=== PATIENT | female | born 1945 | race Caucasian/White ===

== ENCOUNTER → 2017-11-11 | Outpatient (CLI) | payer MEDICARE, OTHER ==
[~2017-11-11] MED LIST: CIPRO500 MG; CYCLOBENZAPRINE10 MG; TYLENOL # 31 EA; Z.0.CRESTOR10 MG PO; Z.0.PREMARIN0.625 MG PO; Z.0.SERTRALINE HCL50; Z.0.VERAPAMIL HCL40 PO; ZOLOFT50 MG PO
--- NOTE | 2017-11-11 15:05 | Diagnostic Imaging Report ---
PROCEDURE: Frontal and lateral views of the chest. COMPARISON: None. INDICATIONS: BRONCHIECTASIS, SOB 2 WEEKS FINDINGS: Lines/tubes: None. Lungs: Prominence of the pulmonary interstitium particularly in the lower lobes with Erlinda B-lines. Mild bilateral perihilar peribronchial thickening. There is no evidence of pneumonia or pulmonary edema. Subtle, 8 mm nodular density projected on the right lung base on the PA view without corresponding abnormality on the lateral view. Pleura: There is no pleural effusion or pneumothorax. Heart and mediastinum: The heart and the mediastinum are normal. Mild calcification of the aortic arch. Bones: No acute bony abnormality. IMPRESSION: 1. Prominence of the interstitium in the lower lobes may represent senescent fibrosis. No acute thoracic abnormality. Daniel Brush M.D. Dictated by: Daniel Brush M.D. on 11/11/2017 at 15:07 Electronically approved by: Daniel Brush M.D. on 11/11/2017 at 15:07
== END ==
LOC: RAD 14:30
PROVIDERS: ATTEND Internal Medicine Pulmonary Disease
DX: J47.9 Bronchiectasis, uncomplicated (principal)
CPT/HCPCS: 71046

== ENCOUNTER → 2018-01-01 | Outpatient (CLI) | payer MEDICARE, OTHER ==
--- NOTE | 2018-01-01 17:32 | Diagnostic Imaging Report ---
TECHNIQUE: Magnetic resonance imaging of the RIGHT KNEE was performed WITHOUT injected contrast. HISTORY: Swelling, fall, anterior posterior and lateral side COMPARISON: None available. FINDINGS: LIGAMENTS AND TENDONS: ACL: Intact with intrasubstance degeneration. PCL: Intact Collateral ligaments: Intact. Interval increased soft tissue edema adjacent to the medial collateral ligament. Iliotibial band: Unremarkable Popliteal tendon: Intact Extensor mechanism: Intact JOINT: Menisci: Medial: Complex tearing and attenuation, results in peripheral extrusion. Lateral: Complex tearing and attenuation, results in peripheral extrusion. Articular Cartilage: Medial Compartment: High-grade to full-thickness erosions of the weightbearing cartilage. Lateral Compartment: High-grade to full-thickness erosions of the weightbearing cartilage. Patellofemoral Compartment: High-grade erosions. Joint Fluid: Trace nonspecific effusion and a mildly distended multilobulated Chavira's cyst. BONES: No focal or infiltrative bone marrow replacing abnormality. No acute fracture. Tricompartmental marginal osteophytosis. SOFT TISSUES: Otherwise, unremarkable. IMPRESSION: 1. Findings which could be seen in the setting of a mild medial collateral ligament sprain. 2. Tricompartmental degenerative changes, including degenerative tearing of the menisci. Signed by: Dr. Waylon Youssef D.O., M.M.M. on 01/01/2018 5:29 PM
== END ==
LOC: MRI 12:41
PROVIDERS: ATTEND Specialist
DX: S83.281A Other tear of lateral meniscus, current injury, right knee, initial encounter (principal)

== ENCOUNTER 2018-01-09 09:59 | Outpatient (RCR) | payer MEDICARE, OTHER | END 2018-01-11 | LOC: OT 09:59 | PROVIDERS: ATTEND Specialist | DX: S46.091D Other injury of muscle(s) and tendon(s) of the rotator cuff of right shoulder, subsequent encounter (principal); M25.511 Pain in right shoulder; M25.611 Stiffness of right shoulder, not elsewhere classified; M77.11 Lateral epicondylitis, right elbow; M25.521 Pain in right elbow; M25.621 Stiffness of right elbow, not elsewhere classified; R53.1 Weakness | CPT/HCPCS: 97010 ×5; 97110 ×6; 97140 ×3; 97165; G8987; G8988 ==

== ENCOUNTER → 2018-01-28 | Day surgery (SDC) | payer MEDICARE, OTHER ==
[2018-01-24 14:31] LABS: BASOPHILS % 0.5 % (0.0-1.0); EOSINOPHILS # (AUTO) 0.3 (0.0-0.4); EOSINOPHILS % 3.9 % (0.0-6.0); HEMATOCRIT 42.5 % (34.2-44.1); HEMOGLOBIN 14.2 g/dL (12.0-16.0); LYMPHOCYTES % 30.7 % (18.0-39.1); MEAN CORPUSCULAR HEMOGLOBIN 29.3 pg (28-32); MEAN CORPUSCULAR HGB CONC 33.4 g/dL (31-35); MEAN CORPUSCULAR VOLUME 87.6 fL (81-99); MONOCYTES # (AUTO) 0.6 (0.2-0.8); MONOCYTES % 8.5 % (4.4-11.3); NEUTROPHILS # (AUTO) 3.6 (2.1-6.9); NEUTROPHILS % 56.1 % (38.7-80.0); PLATELET COUNT 149 x10e3/uL (140-360); RED BLOOD COUNT 4.85 x10e6/uL (3.6-5.1); RED CELL DISTRIBUTION WIDTH 14.2 % (11.7-14.4)
[~2018-01-28] MED LIST changes: +ALEVE220 M1; +BUPIVACAINE 0.5%/EPI 30 ML SDV INJ ONE; +CEFAZOLIN SOD 2 GM/D5W 50ML 50 ML IV ONE; +COLESTIPOL HCL1 GM PO; +COQ-10100 MG; +DEXAMETHASONE SOD PHOS INJ 4 MG/ML VIAL ONE; +GLUCOSAMINE1000 MG; +KETOROLAC TROMETHAMINE 30 MG/ML VIAL ONE; +LIDOCAINE HCL 2% LOCAL INJ 5 ML SDV VIAL INJ ONE; +ONDANSETRON HCL INJ 2 MG/ML VIAL ONE; +PROPOFOL IV EMULSION 10 MG/ML 20 ML VIAL ONE; +RED YEAST; +SEVOFLURANE INHAL SOLN 250 ML PEN BTL ONE; +TYLENOL EXTRA500 MG; +[UNRECOGNIZED DRUG - OTHER]
--- NOTE | 2018-01-28 10:11 | Operative Report ---
DATE OF PROCEDURE: January 28, 2018 PREOPERATIVE DIAGNOSES 1. Right knee lateral meniscus tear. 2. Right knee degenerative joint disease of the knee. POSTOPERATIVE DIAGNOSES 1. Right knee medial meniscus tear. 2. Right knee lateral meniscus tear. 3. Right knee degenerative joint disease of the knee. PROCEDURES PERFORMED 1. Right knee examination under anesthesia. 2. Right knee arthroscopy. 3. Right knee partial medial meniscectomy. 4. Right knee partial lateral meniscectomy. 5. Right knee chondroplasties of the patella, trochlea, medial femoral condyle, medial tibial plateau, lateral femoral condyle, lateral tibial plateau. FILTER WASHER: None. ANESTHESIA: General endotracheal intubation anesthesia. IV FLUIDS: Per the anesthesia record. DESCRIPTION OF PROCEDURE: Ms. Lewis was taken to the operating room and placed in the supine position on the operating table. Following induction of general anesthesia as well as endotracheal intubation, the patient's right knee was examined under anesthesia. There was no evidence of ligamentous laxity. There was a mild effusion within the knee joint. The patient's lower extremity was prepped and draped in the standard surgical fashion. A 2-portal technique was used to provide this patient arthroscopic evaluation of the knee joint. Examination of the suprapatellar pouch, medial and lateral gutters found no evidence of loose bodies. There was, however, evidence of chondromalacia of the patellar and trochlear surfaces. The scope was then advanced into the medial compartment. Examination of the medial compartment demonstrated a tear of the posterior horn of the medial meniscus extending to the mid portion of the meniscus body. There was moderate chondromalacia of the articulating surfaces. A combination of biting forceps and motorized shaver was used to resect the torn portion of the meniscus. Chondroplasties of the medial femoral condyle and medial tibial plateau were performed at this time. The scope was advanced into the intercondylar notch, and the anterior cruciate ligament was identified and found to be intact. The scope was advanced into the lateral compartment. There was advanced arthrosis of the lateral compartment. There was also a tear in the posterior horn of the lateral meniscus as well as the anterior horn of the lateral meniscus. A combination of biting forceps and motorized shaver was used to resect the torn portion of the meniscus. Chondroplasties of the lateral femoral condyle and lateral tibial plateau were performed at this time. The scope was then placed in the suprapatellar pouch, and chondroplasties of the patella and trochlea were performed. The knee was deflated of its sterile normal saline. Each of the portal sites were closed using 4-0 nylon suture. The portal sites as well as the knee itself were injected with 0.5% Marcaine with epinephrine. Sterile dressings were applied. The patient was awakened and taken to the postanesthesia care unit in stable condition. Job#: [id number]
== END | disposition home or self-care (01) ==
LOC: OR 05:05
PROVIDERS: ATTEND Specialist
DX: S83.261A Peripheral tear of lateral meniscus, current injury, right knee, initial encounter (principal); S83.221A Peripheral tear of medial meniscus, current injury, right knee, initial encounter; M17.11 Unilateral primary osteoarthritis, right knee; M22.41 Chondromalacia patellae, right knee; M19.011 Primary osteoarthritis, right shoulder; M77.11 Lateral epicondylitis, right elbow; I10 Essential (primary) hypertension; E88.09 Other disorders of plasma-protein metabolism, not elsewhere classified; J44.9 Chronic obstructive pulmonary disease, unspecified; E66.01 Morbid (severe) obesity due to excess calories; F32.9 Major depressive disorder, single episode, unspecified; Z88.6 Allergy status to analgesic agent; Z88.8 Allergy status to other drugs, medicaments and biological substances; Z88.3 Allergy status to other anti-infective agents; X58.XXXA Exposure to other specified factors, initial encounter; Z01.810 Encounter for preprocedural cardiovascular examination; Z01.812 Encounter for preprocedural laboratory examination; Z68.38 Body mass index [BMI] 38.0-38.9, adult; Z87.891 Personal history of nicotine dependence
CPT/HCPCS: 29880; 36415; 85025; 93005; J1100; J1885; J2001; J2405

== ENCOUNTER → 2018-02-04 | Outpatient (CLI) | payer MEDICARE, OTHER ==
[~2018-02-04] MED LIST changes: -BUPIVACAINE 0.5%/EPI 30 ML SDV INJ ONE; -CEFAZOLIN SOD 2 GM/D5W 50ML 50 ML IV ONE; -DEXAMETHASONE SOD PHOS INJ 4 MG/ML VIAL ONE; -KETOROLAC TROMETHAMINE 30 MG/ML VIAL ONE; -LIDOCAINE HCL 2% LOCAL INJ 5 ML SDV VIAL INJ ONE; -ONDANSETRON HCL INJ 2 MG/ML VIAL ONE; -PROPOFOL IV EMULSION 10 MG/ML 20 ML VIAL ONE; -SEVOFLURANE INHAL SOLN 250 ML PEN BTL ONE
== END ==
LOC: RAD 16:51
PROVIDERS: ATTEND Specialist
DX: R22.41 Localized swelling, mass and lump, right lower limb (principal)
CPT/HCPCS: 93971

== ENCOUNTER 2018-02-06 11:00 | Outpatient (RCR) | payer MEDICARE, OTHER | END 2018-02-11 | LOC: OT 11:00 | PROVIDERS: ATTEND Specialist | DX: S46.091D Other injury of muscle(s) and tendon(s) of the rotator cuff of right shoulder, subsequent encounter (principal); M77.11 Lateral epicondylitis, right elbow; M25.511 Pain in right shoulder; M25.611 Stiffness of right shoulder, not elsewhere classified; M25.521 Pain in right elbow; M25.621 Stiffness of right elbow, not elsewhere classified; R53.1 Weakness | CPT/HCPCS: 97010 ×3; 97110 ×4; 97139; G8987; G8988 ==

== ENCOUNTER 2018-03-06 12:31 | Outpatient (RCR) | payer MEDICARE, OTHER ==
[~2018-03-06 12:31] MED LIST changes: -ALEVE220 M1; +ALEVE220 M1 PO; -COQ-10100 MG; +COQ-10100 MG PO; -GLUCOSAMINE1000 MG; +GLUCOSAMINE1000 MG PO; -RED YEAST; +RED YEAST PO; -TYLENOL EXTRA500 MG; +TYLENOL EXTRA500 MG PO
[2018-03-10] MEDS ORDERED: MONTELUKAST SOD10 MG PO (23:15)
[2018-03-10] MEDS ORDERED: TRIAMCINOLONE A15 G1 TOP (23:21)
== END 2018-03-14 ==
LOC: PT 12:31
PROVIDERS: ATTEND Specialist
DX: M75.81 Other shoulder lesions, right shoulder (principal); M77.11 Lateral epicondylitis, right elbow
CPT/HCPCS: 97010 ×2; 97110 ×8; 97162; G8978; G8979

== ENCOUNTER 2018-03-10 14:41 | Inpatient (IN) | payer MEDICARE, OTHER ==
[~2018-03-10] VITALS: Ht 167.6 cm; Wt 118.6 kg
[2018-03-10] MEDS ORDERED: ASPIRIN 81 MG CHEW TAB PO ONE (15:15)
[2018-03-10 15:20] LABS: BASOPHILS % 0.5 % (0.0-1.0); EOSINOPHILS # (AUTO) 0.3 (0.0-0.4); HEMATOCRIT 44.8 % (34.2-44.1); HEMOGLOBIN 14.6 g/dL (12.0-16.0); LYMPHOCYTES # (AUTO) 2.1 (1.0-3.2); LYMPHOCYTES % 24.3 % (18.0-39.1); MEAN CORPUSCULAR HEMOGLOBIN 29.3 pg (28-32); MEAN CORPUSCULAR HGB CONC 32.6 g/dL (31-35); MEAN CORPUSCULAR VOLUME 89.8 fL (81-99); MONOCYTES # (AUTO) 0.6 (0.2-0.8); MONOCYTES % 6.3 % (4.4-11.3); NEUTROPHILS # (AUTO) 5.7 (2.1-6.9); NEUTROPHILS % 65.4 % (38.7-80.0); PLATELET COUNT 178 x10e3/uL (140-360); RED BLOOD COUNT 4.99 x10e6/uL (3.6-5.1); RED CELL DISTRIBUTION WIDTH 14.3 % (11.7-14.4)
[2018-03-10 15:33] LABS: PROTHROMBIN TIME 12.4 seconds (11.9-14.5)
[2018-03-10 15:34] LABS: PARTIAL THROMBOPLASTIN TIME 32.7 seconds (23.8-35.5)
[2018-03-10 15:43] LABS: ALANINE AMINOTRANSFERASE 25 IU/L (0-55); ALBUMIN 4.1 g/dL (3.5-5.0); ALBUMIN/GLOBULIN RATIO 1.2 (0.8-2.0); ALKALINE PHOSPHATASE 103 IU/L (40-150); ANION GAP 16.4 mmol/L (8-16); BLOOD UREA NITROGEN 12 mg/dL (7-26); BUN/CREATININE RATIO 15 (6-25); CALCIUM 10.3 mg/dL (8.4-10.2); CARBON DIOXIDE 27 mmol/L (22-29); CHLORIDE 102 mmol/L (98-107); CREATINE KINASE 46 IU/L (29-168); CREATININE, SERUM 0.79 mg/dL (0.57-1.11); EST GLOMERULAR FILTRATION RATE > 60 ML/MIN (60-); GLUCOSE 91 mg/dL (74-118); POTASSIUM 4.4 mmol/L (3.5-5.1); SODIUM 141 mmol/L (136-145)
[2018-03-10 16:30] LABS: BILIRUBIN,URINE NEGATIVE (NEGATIVE); CLARITY,URINE CLEAR (CLEAR); COLOR,URINE YELLOW (YELLOW); KETONES,URINE NEGATIVE (NEGATIVE); LEUKOCYTE ESTERASE ,URINE TRACE (NEGATIVE); NITRITE,URINE NEGATIVE (NEGATIVE); PROTEIN,URINE DIPSTICK NEGATIVE (NEGATIVE); URINE UROBILINOGEN 0.2 mg/dL (0.2 - 1)
[2018-03-10 16:31] LABS: AMPHETAMINES SCREEN,URINE NEGATIVE (NEGATIVE); BENZODIAZEPINES SCREEN,URINE NEGATIVE (NEGATIVE); PHENCYCLIDINE SCREEN,URINE NEGATIVE (NEGATIVE)
[2018-03-10 16:39] LABS: EPITHELIAL CELLS,URINE MANY /LPF
[2018-03-10 16:40] LABS: TRANSITIONAL EPI CELLS,URINE MANY
[2018-03-10 16:41] LABS: BACTERIA,URINE RARE /HPF; RBC,URINE 0-5 /HPF (0-5); WBC,URINE (MAN) 0-5 /HPF (0-5)
[2018-03-10] MEDS ORDERED: SODIUM CHLORIDE FLUSH 10 ML SYR INJ PRN (18:30)
[2018-03-10] MEDS ORDERED: ONDANSETRON HCL INJ 2 MG/ML VIAL IV PRN (18:30)
[2018-03-10] MEDS ORDERED: ACETAMINOPHEN 325 MG TAB PO PRN (18:45)
--- NOTE | 2018-03-10 19:36 | Diagnostic Imaging Report ---
History: Loss of memory, confusion Comparison studies: Head CT on 04/15/10 Technique: Axial images were obtained from the skull base to the vertex. Coronal and sagittal reconstructions obtained from the axial data. Dose modulation, iterative reconstruction, and/or weight based adjustment of the mA/kV was utilized to reduce the radiation dose to as low as reasonably achievable. Findings: Scalp/skull: No abnormalities. No fractures, blastic or lytic lesions. Extra-axial spaces: No masses. No fluid collections. Brain sulci: Appropriate for age. Ventricles: Normal in size and configuration. No hydrocephalus. Parenchyma: No abnormal densities. No masses, hemorrhage, acute or chronic cortical vascular insults. Sellar/suprasellar region: No abnormalities Craniocervical junction: Patent foramen magnum. No Chiari one malformation. IMPRESSION: 1. No abnormalities. 2. No changes when compared to the head CT on 04/15/2010 Signed by: Dr. Manjit Lange M.D. on 03/10/2018 7:03 PM
[2018-03-10 22:10] VITALS: BP 135/62
[2018-03-10] MEDS: CRESTOR 10MG PO SCH (22:50)
[2018-03-10] MEDS ORDERED: MONTELUKAST SOD10 MG PO (23:15)
[2018-03-10] MEDS ORDERED: TRIAMCINOLONE A15 G1 TOP (23:21)
[2018-03-10] MEDS ORDERED: TRIAMCINOLONE ACET 0.1% CREAM 15 GM TUBE TOP PRN (23:45)
[2018-03-11] VITALS (7 sets, daily range): BP systolic 115–123; BP diastolic 56–70
[2018-03-11] MEDS ORDERED: ACETAMINOPHEN 325 MG TAB PO ONE (00:15)
[2018-03-11] MEDS ORDERED: NAPROXEN 250 MG TAB PO ONE (00:15)
[2018-03-11 05:35] LABS: BASOPHILS % 0.6 % (0.0-1.0); EOSINOPHILS # (AUTO) 0.2 (0.0-0.4); EOSINOPHILS % 3.4 % (0.0-6.0); HEMATOCRIT 41.5 % (34.2-44.1); HEMOGLOBIN 13.3 g/dL (12.0-16.0); LYMPHOCYTES # (AUTO) 2.3 (1.0-3.2); LYMPHOCYTES % 31.8 % (18.0-39.1); MEAN CORPUSCULAR HEMOGLOBIN 29.1 pg (28-32); MEAN CORPUSCULAR VOLUME 90.8 fL (81-99); MONOCYTES # (AUTO) 0.5 (0.2-0.8); MONOCYTES % 6.5 % (4.4-11.3); NEUTROPHILS # (AUTO) 4.1 (2.1-6.9); NEUTROPHILS % 57.1 % (38.7-80.0); PLATELET COUNT 150 x10e3/uL (140-360); RED BLOOD COUNT 4.57 x10e6/uL (3.6-5.1); RED CELL DISTRIBUTION WIDTH 14.2 % (11.7-14.4)
[2018-03-11 05:59] LABS: ALANINE AMINOTRANSFERASE 21 IU/L (0-55); ALBUMIN 3.5 g/dL (3.5-5.0); ALBUMIN/GLOBULIN RATIO 1.3 (0.8-2.0); ALKALINE PHOSPHATASE 89 IU/L (40-150); ANION GAP 15.3 mmol/L (8-16); BLOOD UREA NITROGEN 19 mg/dL (7-26); BUN/CREATININE RATIO 22 (6-25); CALCIUM 9.6 mg/dL (8.4-10.2); CARBON DIOXIDE 26 mmol/L (22-29); CHLORIDE 105 mmol/L (98-107); CREATININE, SERUM 0.85 mg/dL (0.57-1.11); EST GLOMERULAR FILTRATION RATE > 60 ML/MIN (60-); GLUCOSE 113 mg/dL (74-118); POTASSIUM 4.3 mmol/L (3.5-5.1); SODIUM 142 mmol/L (136-145)
[2018-03-11] MEDS ORDERED: PANTOPRAZOLE SOD 40 MG TABEC PO ONE (08:00)
--- NOTE | 2018-03-11 08:43 | History and Physical ---
CHIEF COMPLAINT: Transient memory loss. HISTORY OF PRESENT ILLNESS: The patient is a 72-year-old woman. She has a history of ocular migraines and migraine headaches treated with verapamil through a local neurologist. She also has a history of some degenerative disease and pain in her cervical spine and intermittent pain in her shoulders and hips. Yesterday, the patient suddenly lost her memory. She lost her short-term memory for about 12 hours and then it returned spontaneously. It was associated with a headache on the right side. It was not associated with any seizure activity. There were no focal neurological abnormalities. There was no chest pain or difficulty breathing. PAST SURGICAL HISTORY: Status post arthroscopic knee surgery times 2. PAST MEDICAL HISTORY 1. Ocular migraines. 2. Degenerative disease of the cervical spine. 3. Vague history of "COPD," for which she is receiving Singulair and inhalers. FAMILY HISTORY: Significant for TIAs. ALLERGIES: NO KNOWN DRUG ALLERGIES. SOCIAL HISTORY: The patient has a remote history of smoking. She has not smoked for decades. She has no recent alcohol use. REVIEW OF SYSTEMS: Patient has no fever. She has no headache at this time. The oropharynx is normal. She does complain of some difficulty swallowing and some acid reflux. She does not have chest pain. She has no shortness of breath. She is having no abdominal pain. She has some pain in her shoulders and tenderness in her upper legs. PHYSICAL EXAMINATION VITAL SIGNS: The patient is afebrile. Blood pressure is 122/56. Saturation is 94% on room air. Pulse is 77. HEENT: No facial swelling or erythema. The nasal mucosa is normal. The oropharynx is normal. LYMPHATIC EXAMINATION: No submandibular, cervical or supraclavicular adenopathy. CARDIAC: Exam reveals regular rate and rhythm with normal S1 and S2. There are no murmurs or rubs. LUNGS: Auscultation of the lungs shows clear breath sounds bilaterally. There is no wheezing. ABDOMEN: Soft, nontender. There is no rebound or guarding. EXTREMITIES: Some tenderness to the thighs, proximal part of the lower extremities. There is some tenderness in the shoulders. NEUROLOGIC: There are no focal neurological abnormalities. SKIN: No rashes. LABORATORY DATA: Blood count is within normal limits. CBC is all normal. Urinalysis is normal. IMPRESSION 1. Transient memory loss. 2. Gastroesophageal reflux with some dysphasia. 3. Proximal bilateral shoulder pain. 4. Neck pain. PLAN 1. Patient is awaiting a neurology consultation. 2. MRI of the brain. 3. Carotid duplex and echocardiogram. 4. Proton pump inhibitors. 5. Discussed the possibility of polymyalgia rheumatica with neurology. Job#: [id number]
[2018-03-11] MEDS: GLUCOSAMINE SULFATE PO SCH (09:00)
[2018-03-11] MEDS: ASPIRIN 81 MG ENTERIC COATED PO SCH (09:00)
[2018-03-11] MEDS: VERAPAMIL HCL 80 MG TAB PO SCH ×2 (09:00→20:52)
[2018-03-11] MEDS: NAPROXEN 250 MG TAB PO SCH ×2 (09:00→17:00)
[2018-03-11] MEDS: ANORO ELLIPTA INH SCH (09:00)
[2018-03-11] MEDS: ACETAMINOPHEN 325 MG TAB PO SCH ×2 (09:00→17:00)
[2018-03-11] MEDS: RED YEAST PO SCH ×2 (09:00→17:00)
[2018-03-11] MEDS: SERTRALINE HCL 50 MG TAB PO SCH ×2 (09:00→20:52)
[2018-03-11] MEDS: COLESTIPOL HCL 1 G TAB PO SCH ×2 (09:00→17:00)
[2018-03-11] MEDS ORDERED: RED YEAST PO SCH (09:00)
[2018-03-11] MEDS ORDERED: ANORO ELLIPTA INH SCH (09:00)
--- NOTE | 2018-03-11 13:47 | Diagnostic Imaging Report ---
EXAMINATION: MRI of the brain without contrast. HISTORY: Altered mental status, transient ischemic attack COMPARISON: Head CT on 03/10/2018 and 04-15-10. TECHNIQUE: Sagittal T2; axial DWI, T2, FLAIR, T1-IR, T2 gradient echo; coronal FLAIR. IMAGE QUALITY: Adequate. FINDINGS: Parenchyma: 1. A few scattered white matter T2 and FLAIR hyperintense foci, most likely nonspecific chronic microvascular ischemic changes. 2. No mass, hemorrhage, acute or chronic infarcts. Skull: Unremarkable. Vessels: Expected flow voids present in the major arteries and dural sinuses. Extra-axial spaces: No abnormal signal intensity or mass effect. Brain volume: Within normal limits for age. Ventricles: No hydrocephalus or displacement. Foramen magnum: Unremarkable. Sella: Unremarkable. Paranasal / mastoid sinuses: Minimal mucosal intraoperative thickening of the right sphenoid sinus, otherwise clear IMPRESSION: 1. No acute infarcts. 2. Minimal chronic microvascular ischemic changes. Signed by: Dr. Pauline Wells M.D. on 03/11/2018 1:43 PM
[2018-03-11] MEDS: MONTELUKAST SODIUM 10 MG TAB PO SCH (20:52)
[2018-03-11] MEDS: UBIDECARENONE 300 MG PO SCH (20:52)
[2018-03-11] MEDS: CRESTOR 10MG PO SCH (20:52)
[2018-03-11] MEDS ORDERED: UBIDECARENONE 300 MG PO SCH (21:00)
[2018-03-11] MEDS ORDERED: CRESTOR 10MG PO SCH (21:00)
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
[2018-03-12] VITALS (7 sets, daily range): BP systolic 110–138; BP diastolic 51–72
[2018-03-12] MEDS: GLUCOSAMINE SULFATE PO SCH (09:00)
[2018-03-12] MEDS: RED YEAST PO SCH ×2 (09:00→16:34)
[2018-03-12] MEDS: ANORO ELLIPTA INH SCH (09:00)
[2018-03-12] MEDS: ASPIRIN 81 MG ENTERIC COATED PO SCH (09:58)
[2018-03-12] MEDS: COLESTIPOL HCL 1 G TAB PO SCH ×2 (09:59→16:34)
[2018-03-12] MEDS: ACETAMINOPHEN 325 MG TAB PO SCH ×2 (09:59→16:34)
[2018-03-12] MEDS: VERAPAMIL HCL 80 MG TAB PO SCH ×2 (09:59→21:37)
[2018-03-12] MEDS: NAPROXEN 250 MG TAB PO SCH ×2 (09:59→16:34)
[2018-03-12] MEDS: SERTRALINE HCL 50 MG TAB PO SCH ×2 (09:59→21:40)
--- NOTE | 2018-03-12 11:46 | Cardiology Report ---
DATE OF STUDY: March 11, 2018 DOPPLER SCAN OF THE CAROTIDS The left and right carotid arteries were interrogated using the duplex scanning method. Left carotid artery shows mild intimal thickening and plaquing without high-grade stenosis or flow impairment. Left vertebral flow appears to be antegrade. The right carotid artery shows mild intimal thickening and plaquing without high-grade stenosis or flow impairment. Right vertebral flow appears to be antegrade. CONCLUSIONS 1. No high-grade stenosis bilaterally. 2. Mild intimal thickening and plaquing bilaterally. 3. Vertebral flow appears to be in normal direction bilaterally. Job#: [id number] cc:SENTHIL AVITIA MD
--- NOTE | 2018-03-12 11:49 | Cardiology Report ---
DATE OF STUDY: ECHOCARDIOGRAM M-MODE: Normal chamber sizes. Left ventricular hypertrophy. Normal contractility. Normal mitral aortic valves. No pericardial effusion. SECTOR SCAN: Normal chamber sizes. Left ventricular hypertrophy. Normal contractility. Normal mitral aortic and tricuspid valves. No pericardial effusion. CARDIAC DOPPLER STUDY WITH COLOR: Trace tricuspid regurgitation. CONCLUSIONS 1. No evidence of intracardiac thrombi or masses. 2. Left ventricular hypertrophy with ejection fraction of 65%. 3. No evidence of atrial septal defect or ventricular septal defect. Job#: [id number] TA cc:SENTHIL AVITIA MD
--- NOTE | 2018-03-12 19:54 | Electroencephalogram ---
DATE OF STUDY: March 12, 2018 REQUESTING PHYSICIAN: Nina Cortes MD PATIENT HISTORY: This 72-year-old woman with history of transient short-term memory loss is having an EEG for evaluation of epileptiform activity. The patient is not taking any medications that may effect the EEG. TECHNIQUE: This is a routine, portable EEG, recorded digitally, using the International 10/20 Electrode Placement System, and done in the inpatient setting with the patient awake and asleep. The EEG is adequate for interpretation. DESCRIPTION: Well-organized, well-sustained, 8-9 Hz activity is best seen symmetrically in the posterior head regions. No focal or epileptiform activity is recorded. Sleep is recorded with well-organized spindles and vertex waves. Photic stimulation does produce a driving response. Hyperventilation is not performed. INTERPRETATION: This electroencephalogram is normal with the patient awake and asleep. No epileptiform discharges are seen. Job#: [id number] GH MTDD
[2018-03-12] MEDS: UBIDECARENONE 300 MG PO SCH (21:00)
[2018-03-12] MEDS: CRESTOR 10MG PO SCH (21:40)
[2018-03-12] MEDS: MONTELUKAST SODIUM 10 MG TAB PO SCH (21:40)
[2018-03-13] VITALS: BP 139/65
[2018-03-13 04:00] VITALS: BP 162/67
[2018-03-13 08:05] VITALS: BP 148/70
[2018-03-13 08:15] VITALS: BP 148/70
[2018-03-13] MEDS: ANORO ELLIPTA INH SCH (08:36)
[2018-03-13] MEDS: ACETAMINOPHEN 325 MG TAB PO SCH (08:36)
[2018-03-13] MEDS: RED YEAST PO SCH (08:36)
[2018-03-13] MEDS: NAPROXEN 250 MG TAB PO SCH (08:36)
[2018-03-13] MEDS: GLUCOSAMINE SULFATE PO SCH (08:36)
[2018-03-13] MEDS: COLESTIPOL HCL 1 G TAB PO SCH (08:36)
[2018-03-13] MEDS: ASPIRIN 81 MG ENTERIC COATED PO SCH (08:36)
[2018-03-13] MEDS: VERAPAMIL HCL 80 MG TAB PO SCH (08:36)
[2018-03-13] MEDS: SERTRALINE HCL 50 MG TAB PO SCH (08:37)
[2018-03-13 11:32] VITALS: BP 116/55
== END 2018-03-13 11:45 | disposition home or self-care (01) | DRG 72 ==
LOC: ER 14:41 → ERHOLD 18:21 → MED/SURG3 22:13
PROVIDERS: ADMIT Internal Medicine Critical Care Medicine; ATTEND Internal Medicine Critical Care Medicine
DX: G45.4 Transient global amnesia (principal); K21.9 Gastro-esophageal reflux disease without esophagitis; G31.89 Other specified degenerative diseases of nervous system; J44.9 Chronic obstructive pulmonary disease, unspecified; E78.5 Hyperlipidemia, unspecified; G43.809 Other migraine, not intractable, without status migrainosus; M25.512 Pain in left shoulder; M25.511 Pain in right shoulder; M54.2 Cervicalgia; R13.10 Dysphagia, unspecified
CPT/HCPCS: 36415; 70450; 70551; 80053; 80307; 81001; 82140; 82550; 82553; 82607; 83605; 84425; 84443; 84484; 85025; 85610; 85730; 86592; 93005; 93306; 93880; 95812; 97139; 99284

== ENCOUNTER 2018-04-10 13:00 | Outpatient (RCR) | payer MEDICARE, OTHER ==
[~2018-04-10 13:00] MED LIST changes: +MONTELUKAST SOD10 MG PO; +TRIAMCINOLONE A15 G1 TOP
== END 2018-04-13 ==
LOC: PT 13:00
PROVIDERS: ATTEND Specialist
DX: M25.561 Pain in right knee (principal); M54.5 Low back pain; M25.661 Stiffness of right knee, not elsewhere classified; M62.81 Muscle weakness (generalized); R26.2 Difficulty in walking, not elsewhere classified
CPT/HCPCS: 97010 ×3; 97110 ×11; 97164; G8978; G8979 ×2; G8980

== ENCOUNTER 2019-01-29 18:11 | Emergency (ER) | payer MEDICARE, OTHER ==
[~2019-01-29] VITALS: Ht 167.6 cm; Wt 118.4 kg
[2019-01-29] MEDS ORDERED: LIDOCAINE HCL 1% LOCAL INJ 20 ML VIAL INJ STA (18:25)
[2019-01-29] MEDS ORDERED: LIDOCAINE HCL 1% LOCAL INJ 20 ML VIAL ONE (18:25)
[2019-01-29] MEDS ORDERED: TETANUS/DIPHTHERIA TOX ADULT 0.5 ML SYR IM STA (18:26)
[2019-01-29] MEDS ORDERED: TETANUS/DIPHTHERIA TOX ADULT 0.5 ML SYR ONE (18:38)
== END 2019-01-29 18:42 | disposition home or self-care (01) ==
LOC: FSED 18:11
DX: S61.211A Laceration without foreign body of left index finger without damage to nail, initial encounter (principal); W26.0XXA Contact with knife, initial encounter; Y93.G3 Activity, cooking and baking; Y92.000 Kitchen of unspecified non-institutional (private) residence as the place of occurrence of the external cause; I10 Essential (primary) hypertension; E78.5 Hyperlipidemia, unspecified; F32.9 Major depressive disorder, single episode, unspecified
CPT/HCPCS: 12001; 90471; 90714; 99283; J2001

== ENCOUNTER → 2019-08-20 | Outpatient (CLI) | payer MEDICARE, OTHER ==
--- NOTE | 2019-08-20 17:58 | Diagnostic Imaging Report ---
EXAMINATION: CHEST 2 VIEWS INDICATION: Bronchiectasis COMPARISON: None FINDINGS: LINES/TUBES:None LUNGS:The lungs are mildly hyperinflated. Mild patchy bibasilar opacities. Tubular bronchiectasis at the right lower lobe. PLEURA:No pleural effusion or pneumothorax. MEDIASTINUM:The cardiomediastinal silhouette appears normal in size and shape. Atherosclerotic calcifications of the thoracic aorta. BONES/SOFT TISSUES:No acute osseous injury. ABDOMEN:No free air under the diaphragm. IMPRESSION: Mild patchy bibasilar opacities, more likely subsegmental atelectasis than superimposed aspiration or pneumonia. Right lower lobe tubular bronchiectasis. Signed by: Cindy Nolasco MD on 08/20/2019 5:55 PM
== END ==
LOC: RAD 14:01
PROVIDERS: ATTEND Internal Medicine Pulmonary Disease
DX: J47.9 Bronchiectasis, uncomplicated (principal)
CPT/HCPCS: 71046

== ENCOUNTER → 2020-07-28 | Outpatient (CLI) | payer MEDICARE, OTHER ==
[2020-07-28 12:47] LABS: BASOPHILS % 0.5 % (0.0-1.0); EOSINOPHILS # (AUTO) 0.2 (0.0-0.4); HEMATOCRIT 45.9 % (34.2-44.1); HEMOGLOBIN 14.7 g/dL (12.0-16.0); LYMPHOCYTES % 23.7 % (18.0-39.1); MEAN CORPUSCULAR VOLUME 90.5 fL (81-99); MONOCYTES # (AUTO) 0.5 (0.2-0.8); MONOCYTES % 5.8 % (4.4-11.3); NEUTROPHILS # (AUTO) 5.8 (2.1-6.9); NEUTROPHILS % 67.4 % (38.7-80.0); PLATELET COUNT 177 x10e3/uL (140-360); RED BLOOD COUNT 5.07 x10e6/uL (3.6-5.1); RED CELL DISTRIBUTION WIDTH 14.6 % (11.7-14.4)
[2020-07-28 13:18] LABS: ALANINE AMINOTRANSFERASE 14 IU/L (0-55); ALBUMIN 4.2 g/dL (3.5-5.0); ALBUMIN/GLOBULIN RATIO 1.2 (0.8-2.0); ALKALINE PHOSPHATASE 107 IU/L (40-150); ANION GAP 13.3 mmol/L (8-16); BLOOD UREA NITROGEN 18 mg/dL (7-26); BUN/CREATININE RATIO 21 (6-25); CALCIUM 9.9 mg/dL (8.4-10.2); CARBON DIOXIDE 29 mmol/L (22-29); CHLORIDE 101 mmol/L (98-107); CHOL/HDL RATIO 3.7 (3.0-3.6); CHOLESTEROL 176 MD/DL (0-199); CREATININE, SERUM 0.85 mg/dL (0.57-1.11); EST GLOMERULAR FILTRATION RATE > 60 ML/MIN (60-); GLUCOSE 91 mg/dL (74-118); HDL CHOLESTEROL 48 MG/DL (40-60); LDL CHOLESTEROL 98 MG/DL (60-130); POTASSIUM 4.3 mmol/L (3.5-5.1); SODIUM 139 mmol/L (136-145); TRIGLYCERIDES 148 MG/DL (0-149)
== END ==
LOC: LAB 11:46
PROVIDERS: ATTEND Family Medicine
DX: Z01.818 Encounter for other preprocedural examination (principal); I10 Essential (primary) hypertension; E78.5 Hyperlipidemia, unspecified; J44.9 Chronic obstructive pulmonary disease, unspecified
CPT/HCPCS: 36415; 80053; 80061; 85025; 93005

== ENCOUNTER → 2020-08-16 | Day surgery (SDC) | payer MEDICARE, OTHER ==
[~2020-08-16] MED LIST changes: +BALANCED SALT SOLN (OPTH) 15 ML BTL IO ONE; +ETOMIDATE 2 MG/ML 10 ML INJ IV ONE; +LIDOCAINE 2% /EPINEPHRINE 20 ML SDV INJ ONE; +NEOMYCIN/POLYMYXIN/DEX (OPTH) 3.5 GM TUBE ONE; +POVIDONE IODINE 5% (OPTH) 30 ML BTL ONE; +PROPOFOL IV EMULSION 10 MG/ML 20 ML VIAL ONE; +SIMVASTATIN20 MG PO
[2020-08-16 16:01] VITALS: BP 127/78
== END | disposition home or self-care (01) ==
LOC: OR 13:26
PROVIDERS: ATTEND Ophthalmology
DX: H02.834 Dermatochalasis of left upper eyelid (principal); H02.831 Dermatochalasis of right upper eyelid; I10 Essential (primary) hypertension; J44.9 Chronic obstructive pulmonary disease, unspecified; E78.5 Hyperlipidemia, unspecified; I49.1 Atrial premature depolarization; F32.9 Major depressive disorder, single episode, unspecified; F17.210 Nicotine dependence, cigarettes, uncomplicated; Z88.6 Allergy status to analgesic agent; Z88.1 Allergy status to other antibiotic agents; Z88.8 Allergy status to other drugs, medicaments and biological substances; Z01.812 Encounter for preprocedural laboratory examination; Z20.822 Contact with and (suspected) exposure to COVID-19
CPT/HCPCS: 15823; J2001; J2704; U0002

== ENCOUNTER → 2021-01-17 | Day surgery (SDC) | payer MEDICARE, OTHER ==
[2021-01-12 14:04] LABS: BASOPHILS # (AUTO) 0.1 (0.0-0.1); BASOPHILS % 0.8 % (0.0-1.0); EOSINOPHILS # (AUTO) 0.1 (0.0-0.4); EOSINOPHILS % 2.1 % (0.0-6.0); HEMATOCRIT 42.9 % (34.2-44.1); HEMOGLOBIN 13.4 g/dL (12.0-16.0); LYMPHOCYTES # (AUTO) 1.6 (1.0-3.2); LYMPHOCYTES % 24.6 % (18.0-39.1); MEAN CORPUSCULAR HEMOGLOBIN 27.8 pg (28-32); MEAN CORPUSCULAR HGB CONC 31.2 g/dL (31-35); MONOCYTES # (AUTO) 0.4 (0.2-0.8); NEUTROPHILS # (AUTO) 4.1 (2.1-6.9); NEUTROPHILS % 65.2 % (38.7-80.0); PLATELET COUNT 153 x10e3/uL (140-360); RED BLOOD COUNT 4.82 x10e6/uL (3.6-5.1); RED CELL DISTRIBUTION WIDTH 14.1 % (11.7-14.4)
[2021-01-12 14:32] LABS: ALBUMIN 3.8 g/dL (3.5-5.0); ALBUMIN/GLOBULIN RATIO 1.4 (0.8-2.0); ANION GAP 12.7 mmol/L (8-16); CALCIUM 9.2 mg/dL (8.4-10.2); CREATININE, SERUM 0.74 mg/dL (0.57-1.11); POTASSIUM 3.7 mmol/L (3.5-5.1)
[2021-01-17] VITALS (9 sets, daily range): BP systolic 120–152; BP diastolic 60–83
[~2021-01-17] VITALS: Ht 167.6 cm; Wt 112.9 kg
[~2021-01-17] MED LIST changes: +ALPRAZOLAM 0.5 MG TAB ONE; -BALANCED SALT SOLN (OPTH) 15 ML BTL IO ONE; +DIPHENHYDRAMINE HCL 25 MG CAP ONE; -ETOMIDATE 2 MG/ML 10 ML INJ IV ONE; +FENTANYL CITRATE/PF 100MCG/2 ML INJ ONE; +HEPARIN SOD/SOD CHLORIDE 2,000 ML ONE; +IOPAMIDOL 370 MG/ML 200 ML INFUS..BTL INJ ONE; -LIDOCAINE 2% /EPINEPHRINE 20 ML SDV INJ ONE; +LIDOCAINE HCL 2% LOCAL 20 ML VIAL ONE; +MIDAZOLAM HCL 2 MG/2 ML VIAL ONE; -NEOMYCIN/POLYMYXIN/DEX (OPTH) 3.5 GM TUBE ONE; -POVIDONE IODINE 5% (OPTH) 30 ML BTL ONE; -PROPOFOL IV EMULSION 10 MG/ML 20 ML VIAL ONE; +SODIUM CHLORIDE 0.9% 1000ML 1,000 ML ONE; +VERAPAMIL HCL 2.5 MG/ML 2 ML VIAL ONE
== END | disposition home or self-care (01) ==
LOC: CATH LAB 13:19
PROVIDERS: ATTEND Internal Medicine Interventional Cardiology
DX: I25.118 Atherosclerotic heart disease of native coronary artery with other forms of angina pectoris (principal); R94.39 Abnormal result of other cardiovascular function study; R03.0 Elevated blood-pressure reading, without diagnosis of hypertension; E78.00 Pure hypercholesterolemia, unspecified; J44.9 Chronic obstructive pulmonary disease, unspecified; Z88.6 Allergy status to analgesic agent; Z88.2 Allergy status to sulfonamides; Z88.8 Allergy status to other drugs, medicaments and biological substances; Z68.41 Body mass index [BMI] 40.0-44.9, adult; Z82.49 Family history of ischemic heart disease and other diseases of the circulatory system; Z82.3 Family history of stroke
CPT/HCPCS: 36415; 76937; 80053; 83880; 85025; 93458; C1887; J2001; J2250; J3010; J7030; Q9967; 99152; 99153

== ENCOUNTER 2022-05-31 07:14 | Observation (INO) | payer MEDICARE, OTHER ==
[2022-05-30 13:27] LABS: BASOPHILS % 0.5 % (0.0-1.0); EOSINOPHILS # (AUTO) 0.1 (0.0-0.4); EOSINOPHILS % 2.5 % (0.0-6.0); HEMATOCRIT 36.9 % (34.2-44.1); HEMOGLOBIN 12.4 g/dL (12.0-16.0); LYMPHOCYTES # (AUTO) 1.7 (1.0-3.2); LYMPHOCYTES % 30.6 % (18.0-39.1); MEAN CORPUSCULAR HEMOGLOBIN 30.9 pg (28-32); MEAN CORPUSCULAR HGB CONC 33.6 g/dL (31-35); MONOCYTES # (AUTO) 0.4 (0.2-0.8); MONOCYTES % 7.5 % (4.4-11.3); NEUTROPHILS # (AUTO) 3.3 (2.1-6.9); NEUTROPHILS % 58.2 % (38.7-80.0); PLATELET COUNT 144 x10e3/uL (140-360); RED BLOOD COUNT 4.01 x10e6/uL (3.6-5.1); RED CELL DISTRIBUTION WIDTH 14.2 % (11.7-14.4)
[2022-05-30 13:48] LABS: INR 0.95; PROTHROMBIN TIME 13.5 seconds (11.9-14.5)
[2022-05-30 13:49] LABS: PARTIAL THROMBOPLASTIN TIME 33.6 seconds (23.8-35.5)
[2022-05-30 14:00] LABS: ANION GAP 12.6 mmol/L (8-16); CALCIUM 9.2 mg/dL (8.4-10.2); CREATININE, SERUM 0.72 mg/dL (0.57-1.11); POTASSIUM 3.6 mmol/L (3.5-5.1)
[~2022-05-31] VITALS: Ht 167.6 cm; Wt 112.9 kg
[~2022-05-31 07:14] MED LIST changes: -ALPRAZOLAM 0.5 MG TAB ONE; -DIPHENHYDRAMINE HCL 25 MG CAP ONE; -FENTANYL CITRATE/PF 100MCG/2 ML INJ ONE; -HEPARIN SOD/SOD CHLORIDE 2,000 ML ONE; +HYDROCODON-ACE1 EA11 PO; -IOPAMIDOL 370 MG/ML 200 ML INFUS..BTL INJ ONE; -LIDOCAINE HCL 2% LOCAL 20 ML VIAL ONE; +LIDOCAINE HCL/EPINEPHRINE/PF 10 ML VIAL ONE; -MIDAZOLAM HCL 2 MG/2 ML VIAL ONE; +NEURONTIN300 MG PO; -SODIUM CHLORIDE 0.9% 1000ML 1,000 ML ONE; +THROMBIN FOR SOLN 5,000 UNIT VIAL ONE; -VERAPAMIL HCL 2.5 MG/ML 2 ML VIAL ONE; +Vancomycin IV 1 GM VIAL ONE
[2022-05-31] MEDS ORDERED: THROMBIN FOR SOLN 5,000 UNIT VIAL ONE (07:43)
[2022-05-31] MEDS ORDERED: HYDROCODON-ACE1 EA12 PO (10:25)
[2022-05-31] MEDS ORDERED: HYDROMORPHONE 2MG/ML 2 MG/ML ML IV PRN (10:30)
[2022-05-31] MEDS ORDERED: ONDANSETRON HCL INJ 2MG/ML 2ML 2 MG/ML VIAL IV PRN (10:30)
[2022-05-31] MEDS ORDERED: ACETAMINOPHEN 325 MG TAB PO PRN (10:30)
[2022-05-31] MEDS ORDERED: MAGNESIUM/ALUMINUM/SIMETHICONE 30 ML UDC PO PRN (10:30)
[2022-05-31] MEDS ORDERED: OXYCODONE/ACETAMINOPHEN 5-325 1 EACH TABLET PO PRN (10:30)
[2022-05-31] MEDS ORDERED: CARISOPRODOL 350 MG TAB PO PRN (10:30)
[2022-05-31] MEDS ORDERED: ZOLPIDEM TARTRATE 5 MG TAB PO PRN (10:30)
[2022-05-31] MEDS ORDERED: MORPHINE SULFATE 5 MG/ML VIAL IM PRN (10:30)
[2022-05-31] MEDS ORDERED: PROMETHAZINE HCL (IM) 25 MG/ML VIAL IM PRN (10:30)
[2022-05-31] MEDS ORDERED: SUGAMMADEX SODIUM 200 MG/2 ML VIAL IV ONE (10:40)
[2022-05-31] MEDS ORDERED: NALOXONE HCL INJ 0.4 MG/ML AMP ONE (10:50)
[2022-05-31] MEDS ORDERED: FENTANYL CITRATE/PF 100MCG/2 ML INJ ONE ×2 (11:07→13:35)
[2022-05-31 12:00] VITALS: BP 133/65
[2022-05-31 12:17] VITALS: BP 133/65
[2022-05-31] MEDS: LACTATED RINGER'S 1,000 ML IV SCH ×2 (12:29→16:50)
[2022-05-31] MEDS ORDERED: LIDOCAINE HCL 2% LOCAL INJ 5 ML SDV VIAL INJ ONE (13:33)
[2022-05-31] MEDS ORDERED: GLYCOPYRROLATE INJ 0.2 MG/ML VIAL ONE (13:33)
[2022-05-31] MEDS ORDERED: KETOROLAC TROMETHAMINE 30 MG/ML VIAL ONE (13:33)
[2022-05-31] MEDS ORDERED: DEXAMETHASONE SOD PHOS INJ 4 MG/ML SDV ONE (13:33)
[2022-05-31] MEDS ORDERED: ONDANSETRON HCL INJ 2MG/ML 2ML 2 MG/ML VIAL ONE (13:33)
[2022-05-31] MEDS ORDERED: PROPOFOL IV EMULSION 10 MG/ML 20 ML VIAL ONE (13:33)
[2022-05-31] MEDS ORDERED: MIDAZOLAM HCL 2 MG/2 ML VIAL ONE (13:35)
[2022-05-31 15:46] VITALS: BP 145/65
[2022-05-31] MEDS: GABAPENTIN 300 MG CAP PO SCH (16:52)
[2022-05-31 20:00] VITALS: BP 151/60
[2022-05-31 21:00] VITALS: BP 151/60
[2022-05-31] MEDS ORDERED: VERAPAMIL HCL 80 MG TAB PO SCH (21:00)
[2022-05-31] MEDS ORDERED: SERTRALINE HCL 50 MG TAB PO SCH (21:00)
[2022-05-31] MEDS ORDERED: MONTELUKAST SODIUM 10 MG TAB PO SCH (21:00)
[2022-05-31] MEDS ORDERED: NON-FORMULARY MEDICATION (Verapamil Hcl 40 MG) PO SCH (21:00)
[2022-06-01] VITALS: BP 135/64
[2022-06-01] MEDS: LACTATED RINGER'S 1,000 ML IV SCH (03:16)
[2022-06-01 04:00] VITALS: BP 144/71
[2022-06-01] MEDS ORDERED: ONDANSETRON HCL 4 MG ORAL DISINTEGRATING TAB PO PRN (07:15)
[2022-06-01 07:58] VITALS: BP 134/61
[2022-06-01 08:43] VITALS: BP 134/61
[2022-06-01] MEDS: GABAPENTIN 300 MG CAP PO SCH (09:10)
== END 2022-06-01 11:43 | disposition home or self-care (01) ==
LOC: OR 07:14 → PACU V 10:23 → MED/SURG 11:49
PROVIDERS: ADMIT Neurological Surgery; ATTEND Neurological Surgery
DX: M51.16 Intervertebral disc disorders with radiculopathy, lumbar region (principal); M47.896 Other spondylosis, lumbar region; J43.9 Emphysema, unspecified; I10 Essential (primary) hypertension; M81.0 Age-related osteoporosis without current pathological fracture; M85.80 Other specified disorders of bone density and structure, unspecified site; M19.90 Unspecified osteoarthritis, unspecified site; Z01.818 Encounter for other preprocedural examination; Z20.822 Contact with and (suspected) exposure to COVID-19
CPT/HCPCS: 0223U; 36415; 63030; 71046; 72020; 80048; 85025; 85610; 85730; 86850; 86900; 88304; 88311; 93005; 97116; 97161; 97530; G0378 ×2; J0690 ×2; J1100; J1885; J2001; J2250; J2310; J2405; J2704; J3010; J3370; J7121

== ENCOUNTER 2022-06-02 05:29 | Inpatient (IN) | payer MEDICARE ==
[~2022-06-02] VITALS: Ht 167.6 cm; Wt 118.8 kg
[~2022-06-02 05:29] MED LIST changes: +HYDROCODON-ACE1 EA12 PO; -LIDOCAINE HCL/EPINEPHRINE/PF 10 ML VIAL ONE; -THROMBIN FOR SOLN 5,000 UNIT VIAL ONE; -Vancomycin IV 1 GM VIAL ONE
[2022-06-02] MEDS ORDERED: KETOROLAC TROMETHAMINE 30 MG/ML VIAL IM STA (05:44)
[2022-06-02] MEDS ORDERED: SODIUM CHLORIDE 0.9% 1000ML 1,000 ML IV SCH (05:45)
[2022-06-02] MEDS ORDERED: ACETAMINOPHEN 325 MG TAB PO ONE (06:00)
[2022-06-02 06:07] LABS: BASOPHILS % 0.1 % (0.0-1.0); EOSINOPHILS % 0.4 % (0.0-6.0); HEMATOCRIT 36.5 % (34.2-44.1); HEMOGLOBIN 11.3 g/dL (12.0-16.0); LYMPHOCYTES # (AUTO) 1.2 (1.0-3.2); LYMPHOCYTES % 14.6 % (18.0-39.1); MEAN CORPUSCULAR HEMOGLOBIN 30.3 pg (28-32); MEAN CORPUSCULAR VOLUME 97.9 fL (81-99); MONOCYTES # (AUTO) 0.5 (0.2-0.8); MONOCYTES % 6.5 % (4.4-11.3); NEUTROPHILS # (AUTO) 6.2 (2.1-6.9); NEUTROPHILS % 77.6 % (38.7-80.0); PLATELET COUNT 123 x10e3/uL (140-360); RED BLOOD COUNT 3.73 x10e6/uL (3.6-5.1); RED CELL DISTRIBUTION WIDTH 14.4 % (11.7-14.4)
[2022-06-02] MEDS ORDERED: KETOROLAC TROMETHAMINE 30 MG/ML VIAL IV STA (06:31)
[2022-06-02 06:33] LABS: ALBUMIN 3.7 g/dL (3.5-5.0); ALBUMIN/GLOBULIN RATIO 1.3 (0.8-2.0); ANION GAP 13.5 mmol/L (8-16); CALCIUM 8.7 mg/dL (8.4-10.2); CREATININE, SERUM 0.71 mg/dL (0.57-1.11); POTASSIUM 3.5 mmol/L (3.5-5.1)
[2022-06-02] MEDS ORDERED: IOPAMIDOL 370 MG/ML 100 ML INFUS..BTL INJ ONE (07:09)
[2022-06-02] MEDS ORDERED: ALBUTEROL/IPRATROPIUM 3 ML NEB NEB ONE (08:00)
[2022-06-02] MEDS ORDERED: PIPERACILLIN/TAZOBACTAM 4.5 GM in SODIUM CHLORIDE 0.9% 100 ML IV STA (09:04)
[2022-06-02] MEDS ORDERED: Vancomycin IV 1 GM in SODIUM CHLORIDE 0.9% 250ML 250 ML IV STA (09:04)
[2022-06-02] MEDS ORDERED: Morphine 4mg INJECTION 4 MG/ML INJ IV ONE (09:45)
[2022-06-02 10:30] VITALS: BP 122/68
[2022-06-02] MEDS ORDERED: HYDROCODONE/APAP 7.5MG-325MG 1 EA TAB PO PRN (10:30)
[2022-06-02] MEDS ORDERED: ALBUTEROL/IPRATROPIUM 3 ML NEB NEB PRN (10:30)
[2022-06-02] MEDS ORDERED: FUROSEMIDE INJ 10 MG/ML 4 ML VIAL IV NR (10:30)
[2022-06-02] MEDS ORDERED: POTASSIUM CHLORIDE 10MEQ EA PO NR (10:45)
[2022-06-02 11:00] VITALS: BP 122/68
[2022-06-02] MEDS ORDERED: Vancomycin IV 1 GM in SODIUM CHLORIDE 0.9% 250ML 250 ML IV ONE (11:00)
[2022-06-02] MEDS: METHYLPREDNISOLONE SOD SUCC 40 MG/ML VIAL 1ML IV SCH ×3 (11:19→21:08)
[2022-06-02 11:26] VITALS: BP 122/68
[2022-06-02] MEDS: ALBUTEROL/IPRATROPIUM 3 ML NEB NEB SCH ×2 (13:14→19:20)
[2022-06-02 15:39] VITALS: BP 146/71
[2022-06-02] MEDS: GABAPENTIN 300 MG CAP PO SCH (17:10)
[2022-06-02] MEDS: DOXYCYCLINE HYCLATE TABLET 100 MG TAB PO SCH (17:11)
[2022-06-02 20:00] VITALS: BP 119/62
[2022-06-02] MEDS: MONTELUKAST SODIUM 10 MG TAB PO SCH (20:54)
[2022-06-02] MEDS: SERTRALINE HCL 50 MG TAB PO SCH (20:56)
[2022-06-02] MEDS ORDERED: VERAPAMIL HCL 80 MG TAB PO SCH (21:00)
[2022-06-03] VITALS (7 sets, daily range): BP systolic 120–145; BP diastolic 61–75
[2022-06-03] MEDS: ALBUTEROL/IPRATROPIUM 3 ML NEB NEB SCH ×4 (01:00→19:30)
[2022-06-03] MEDS: METHYLPREDNISOLONE SOD SUCC 40 MG/ML VIAL 1ML IV SCH ×3 (05:25→21:37)
[2022-06-03 06:30] LABS: BASOPHILS % 0.2 % (0.0-1.0); HEMATOCRIT 31.6 % (34.2-44.1); HEMOGLOBIN 10.4 g/dL (12.0-16.0); LYMPHOCYTES # (AUTO) 0.8 (1.0-3.2); LYMPHOCYTES % 12.3 % (18.0-39.1); MEAN CORPUSCULAR HEMOGLOBIN 30.6 pg (28-32); MEAN CORPUSCULAR HGB CONC 32.9 g/dL (31-35); MEAN CORPUSCULAR VOLUME 92.9 fL (81-99); MONOCYTES # (AUTO) 0.2 (0.2-0.8); MONOCYTES % 3.6 % (4.4-11.3); NEUTROPHILS # (AUTO) 5.3 (2.1-6.9); NEUTROPHILS % 83.3 % (38.7-80.0); PLATELET COUNT 123 x10e3/uL (140-360); RED CELL DISTRIBUTION WIDTH 14.1 % (11.7-14.4)
[2022-06-03 06:54] LABS: ANION GAP 15.7 mmol/L (8-16); CALCIUM 9.1 mg/dL (8.4-10.2); CREATININE, SERUM 0.71 mg/dL (0.57-1.11); POTASSIUM 3.7 mmol/L (3.5-5.1)
[2022-06-03] MEDS: FUROSEMIDE INJ 10 MG/ML 4 ML VIAL IV SCH (08:48)
[2022-06-03] MEDS: POTASSIUM CHLORIDE 10MEQ EA PO SCH (08:48)
[2022-06-03] MEDS: GABAPENTIN 300 MG CAP PO SCH ×2 (08:49→16:43)
[2022-06-03] MEDS: DOXYCYCLINE HYCLATE TABLET 100 MG TAB PO SCH ×2 (08:49→16:43)
[2022-06-03] MEDS: SERTRALINE HCL 50 MG TAB PO SCH (21:35)
[2022-06-03] MEDS: MONTELUKAST SODIUM 10 MG TAB PO SCH (21:37)
[2022-06-03] MEDS: VERAPAMIL HCL 80 MG TAB PO SCH (21:37)
[2022-06-04] VITALS (8 sets, daily range): BP systolic 139–157; BP diastolic 55–87
[2022-06-04] MEDS: ALBUTEROL/IPRATROPIUM 3 ML NEB NEB SCH ×4 (01:01→19:38)
[2022-06-04 06:04] LABS: ANION GAP 13.8 mmol/L (8-16); CALCIUM 8.6 mg/dL (8.4-10.2); CREATININE, SERUM 0.71 mg/dL (0.57-1.11); MAGNESIUM 2.1 MG/DL (1.3-2.1); PHOSPHORUS 3.2 MG/DL (2.3-4.7); POTASSIUM 3.8 mmol/L (3.5-5.1)
[2022-06-04] MEDS: METHYLPREDNISOLONE SOD SUCC 40 MG/ML VIAL 1ML IV SCH ×3 (06:15→19:59)
[2022-06-04] MEDS: DOXYCYCLINE HYCLATE TABLET 100 MG TAB PO SCH ×2 (09:10→17:29)
[2022-06-04] MEDS: POTASSIUM CHLORIDE 10MEQ EA PO SCH (09:10)
[2022-06-04] MEDS: GABAPENTIN 300 MG CAP PO SCH ×2 (09:10→17:29)
[2022-06-04] MEDS: FUROSEMIDE INJ 10 MG/ML 4 ML VIAL IV SCH (09:11)
[2022-06-04] MEDS: MONTELUKAST SODIUM 10 MG TAB PO SCH (19:59)
[2022-06-04] MEDS: VERAPAMIL HCL 80 MG TAB PO SCH (19:59)
[2022-06-04] MEDS: SERTRALINE HCL 50 MG TAB PO SCH (20:00)
[2022-06-05] VITALS (8 sets, daily range): BP systolic 141–157; BP diastolic 57–87
[2022-06-05] MEDS: ALBUTEROL/IPRATROPIUM 3 ML NEB NEB SCH ×3 (00:50→13:26)
[2022-06-05] MEDS: METHYLPREDNISOLONE SOD SUCC 40 MG/ML VIAL 1ML IV SCH ×2 (04:56→14:29)
[2022-06-05] MEDS: DOXYCYCLINE HYCLATE TABLET 100 MG TAB PO SCH (08:28)
[2022-06-05] MEDS: POTASSIUM CHLORIDE 10MEQ EA PO SCH (08:29)
[2022-06-05] MEDS: GABAPENTIN 300 MG CAP PO SCH (08:29)
[2022-06-05] MEDS: FUROSEMIDE INJ 10 MG/ML 4 ML VIAL IV SCH (08:29)
[2022-06-06] MEDS ORDERED: FUROSEMIDE 40 MG TAB PO SCH (09:00)
== END 2022-06-05 15:54 | disposition home or self-care (01) | DRG 193 ==
LOC: ER 05:35 → ERHOLD 09:08 → MED/SURG3 10:15
PROVIDERS: ADMIT Internal Medicine; ATTEND Internal Medicine
DX: J18.9 Pneumonia, unspecified organism (principal); I50.31 Acute diastolic (congestive) heart failure; J44.0 Chronic obstructive pulmonary disease with (acute) lower respiratory infection; J44.1 Chronic obstructive pulmonary disease with (acute) exacerbation; Z68.41 Body mass index [BMI] 40.0-44.9, adult; M51.16 Intervertebral disc disorders with radiculopathy, lumbar region; E78.5 Hyperlipidemia, unspecified; Z88.8 Allergy status to other drugs, medicaments and biological substances; Z87.891 Personal history of nicotine dependence; E66.01 Morbid (severe) obesity due to excess calories; R09.02 Hypoxemia; I11.0 Hypertensive heart disease with heart failure; G47.33 Obstructive sleep apnea (adult) (pediatric); R00.2 Palpitations; Y95 Nosocomial condition; Z20.822 Contact with and (suspected) exposure to COVID-19
CPT/HCPCS: 36415; 71260; 80048; 80053; 82948; 83605; 83735; 83880; 84100; 84484; 85025; 87040; 87086; 93005; 94640; 94760; 94799; 99284; J1885; J1940; J2270; J2543; J2920; J3370; J7030; J7050; Q9967